=== PATIENT | female | born 1935 | race African-American/Black ===

== ENCOUNTER 2017-07-17 05:56 | Inpatient (IN) ==
[2017-07-17] MEDS ORDERED: SODIUM CHLORIDE 0.9% 1,000 ML IV STA (06:24)
[2017-07-17 06:32] LABS: Basophils % 0.5 % (0.0-0.8); Eosinophils # 0.1 10*3/uL (0.0-0.87); Eosinophils % 1.5 % (0.00-10.9); Hematocrit 38.2 VOL% (35.7-47.0); Hemoglobin 12.6 GM/DL (12.0-16.0); Immature Granulocytes % 0.5 %; Immature Granulocytes Absolute 0.03 #; Lymphocytes % 15.9 % (21.3-54.2); Mean Corpuscular Hemoglobin 27 PG (27-34); Mean Corpuscular Volume 82.3 FL (87-102); Mean Platelet Volume 10.5 FL (9.6-12.0); Monocytes # 0.4 10*3/uL (0.11-0.8); Monocytes % 5.9 % (1.7-12.7); Neutrophils # 4.9 10*3/uL (1.4-7.4); Neutrophils % 75.7 % (38.7-73.9); Platelet Count 269 T/CUMM (130-400); Red Blood Count 4.64 MC/CUMM (3.8-5.5); Red Cell Distribution Width 15.3 % (9.3-17.3); White Blood Count 6.5 T/CUMM (4-12)
[2017-07-17 06:34] LABS: Apearance,Urine CLOUDY (Clear); Bacteria,Urine Many /HPF (Few); Bilirubin,Urine Negative (Negative); Blood, Urine Small mg/dL (Negative); Glucose,Urine (UA) Negative (Negative); Ketones,Urine Negative (Negative); Mucus,Urine Moderate /LPF (Occasional); Nitrite,Urine Negative (Negative); Protein,Urine 100 MG/DL; RBC,Urine 31 /HPF (0-4); Urine Color Amber (Yellow); Urine Specific Gravity 1.021 (1.001-1.035); WBC,Urine 1596 /HPF (0-6)
[2017-07-17] MEDS ORDERED: LEVOFLOXACIN INJ 500 MG in PREMIX 1 EACH IV STA (06:48)
[2017-07-17] MEDS ORDERED: LEVOFLOXACIN INJ 100 ML IV ONE (06:54)
[2017-07-17 07:19] LABS: Albumin 2.9 G/DL (3.4-5.0); Bilirubin,Total 0.4 MG/DL (0.2-1.0); Calcium 8.3 MG/DL (8.5-10.1); Potassium 3.6 MMOL/L (3.5-5.1)
[2017-07-17] MEDS ORDERED: INFLUENZA VIRUS VACCINE 0.5 ML SYRINGE IM ONE (10:14)
[2017-07-17] MEDS ORDERED: PNEUMOCOCCAL VACCINE (13 VALENT) 0.5 ML SYRINGE IM ONE (10:15)
[2017-07-17] MEDS ORDERED: GLUCAGON 1 MG VIAL IM PRN (10:25)
[2017-07-17] MEDS ORDERED: DEXTROSE 50% 25 GM/50 ML VIAL IV PRN (10:25)
[2017-07-17] MEDS ORDERED: MAGNESIUM HYDROXIDE SUSP 30 ML UDCUP PO PRN (10:25)
[2017-07-17] MEDS ORDERED: ACETAMINOPHEN 325 MG TABLET PO PRN (10:25)
[2017-07-17] MEDS ORDERED: FUROSEMIDE 40 MG TABLET PO SCH (12:00)
[2017-07-17] MEDS: oxyCODONE/ACETAMINOPHEN 5-325 MG TABLET PO SCH ×3 (12:33→21:06)
[2017-07-17] MEDS: PANTOPRAZOLE 40 MG TABLET PO SCH (12:33)
[2017-07-17] MEDS: VALSARTAN/HCTZ 160-12.5 MG TABLET PO SCH (12:33)
[2017-07-17] MEDS: DONEPEZIL 10 MG TABLET PO SCH (12:34)
[2017-07-17] MEDS: POLYETHYLENE GLYCOL POWDER 17 GM PACK PO SCH (12:34)
[2017-07-17] MEDS: RALOXIFENE 60 MG TABLET PO SCH (12:34)
[2017-07-17] MEDS: POTASSIUM CHLORIDE 20 MEQ TABLET PO SCH (12:34)
[2017-07-17] MEDS: EZETIMIBE 10 MG TABLET PO SCH (12:34)
[2017-07-17] MEDS: INSULIN NPH/REGULAR 70/30 100 UNIT/ML SUBCUT SCH ×2 (12:34→18:47)
[2017-07-17] MEDS: INSULIN LISPRO 100 UNIT/ML SUBCUT SCH ×3 (12:34→21:00)
[2017-07-17] MEDS: GABAPENTIN 300 MG CAPSULE PO SCH ×2 (16:20→21:06)
[2017-07-17] MEDS: FUROSEMIDE 40 MG/4 ML VIAL IV SCH (16:20)
[2017-07-17] MEDS: DOCUSATE SODIUM 100 MG CAPSULE PO SCH (21:06)
[2017-07-17] MEDS: SERTRALINE 50 MG TABLET PO SCH (21:06)
[2017-07-18 06:23] LABS: Basophils % 0.3 % (0.0-0.8); Eosinophils # 0.1 10*3/uL (0.0-0.87); Hemoglobin 11.4 GM/DL (12.0-16.0); Immature Granulocytes % 0.6 %; Immature Granulocytes Absolute 0.04 #; Lymphocytes # 1.6 10*3/uL (1.4-4.0); Lymphocytes % 23.3 % (21.3-54.2); Mean Corpuscular HGB Conc 32.6 GM/DL (32-36); Mean Corpuscular Hemoglobin 27 PG (27-34); Mean Corpuscular Volume 81.4 FL (87-102); Mean Platelet Volume 11.1 FL (9.6-12.0); Monocytes # 0.5 10*3/uL (0.11-0.8); Monocytes % 6.9 % (1.7-12.7); Neutrophils # 4.7 10*3/uL (1.4-7.4); Neutrophils % 67.9 % (38.7-73.9); Platelet Count 257 T/CUMM (130-400); Red Cell Distribution Width 15.2 % (9.3-17.3)
[2017-07-18 07:05] LABS: Calcium 8.1 MG/DL (8.5-10.1); Magnesium 2.1 MG/DL (1.8-2.4); Osmolality,Calculated 285.8 MOS/KG (273-304); Potassium 3.4 MMOL/L (3.5-5.1); Risk Ratio 3.73; Thyroid Stimulating Hormone 0.702 uIU/ml (0.358-3.74)
[2017-07-18] MEDS: POTASSIUM CHLORIDE 20 MEQ TABLET PO SCH (08:56)
[2017-07-18] MEDS: EZETIMIBE 10 MG TABLET PO SCH (08:56)
[2017-07-18] MEDS: amLODIPine 10 MG TABLET PO SCH (08:56)
[2017-07-18] MEDS: DONEPEZIL 10 MG TABLET PO SCH (08:56)
[2017-07-18] MEDS: GABAPENTIN 300 MG CAPSULE PO SCH ×3 (08:56→20:48)
[2017-07-18] MEDS: RALOXIFENE 60 MG TABLET PO SCH (08:56)
[2017-07-18] MEDS: PANTOPRAZOLE 40 MG TABLET PO SCH (08:56)
[2017-07-18] MEDS: VALSARTAN/HCTZ 160-12.5 MG TABLET PO SCH (08:56)
[2017-07-18] MEDS: DOCUSATE SODIUM 100 MG CAPSULE PO SCH (08:56)
[2017-07-18] MEDS: LEVOFLOXACIN INJ 500 MG in PREMIX 1 EACH IV SCH (08:57)
[2017-07-18] MEDS: POLYETHYLENE GLYCOL POWDER 17 GM PACK PO SCH (08:57)
[2017-07-18] MEDS: INSULIN NPH/REGULAR 70/30 100 UNIT/ML SUBCUT SCH (08:57)
[2017-07-18] MEDS: FUROSEMIDE 40 MG/4 ML VIAL IV SCH (08:57)
[2017-07-18] MEDS: oxyCODONE/ACETAMINOPHEN 5-325 MG TABLET PO SCH ×4 (09:05→20:48)
[2017-07-18] MEDS: INSULIN LISPRO 100 UNIT/ML SUBCUT SCH ×3 (09:05→16:55)
[2017-07-18] MEDS ORDERED: POTASSIUM CHLORIDE 20 MEQ TABLET PO ONE (13:55)
[2017-07-18] MEDS ORDERED: MAGNESIUM CITRATE 300 ML BOTTLE PO ONE (13:57)
[2017-07-18] MEDS: ONDANSETRON 4 MG/2 ML VIAL IV PRN (17:25)
[2017-07-18] MEDS: SERTRALINE 50 MG TABLET PO SCH (20:49)
[2017-07-19 04:36] LABS: Basophils % 0.3 % (0.0-0.8); Eosinophils # 0.1 10*3/uL (0.0-0.87); Eosinophils % 1.1 % (0.00-10.9); Hematocrit 33.7 VOL% (35.7-47.0); Hemoglobin 11.1 GM/DL (12.0-16.0); Immature Granulocytes % 0.6 %; Immature Granulocytes Absolute 0.05 #; Lymphocytes # 1.7 10*3/uL (1.4-4.0); Lymphocytes % 21.4 % (21.3-54.2); Mean Corpuscular HGB Conc 32.9 GM/DL (32-36); Mean Corpuscular Hemoglobin 27 PG (27-34); Mean Corpuscular Volume 81.4 FL (87-102); Mean Platelet Volume 10.7 FL (9.6-12.0); Monocytes # 0.6 10*3/uL (0.11-0.8); Monocytes % 6.9 % (1.7-12.7); Neutrophils # 5.6 10*3/uL (1.4-7.4); Neutrophils % 69.7 % (38.7-73.9); Platelet Count 248 T/CUMM (130-400); Red Blood Count 4.14 MC/CUMM (3.8-5.5); Red Cell Distribution Width 14.8 % (9.3-17.3)
[2017-07-19 05:06] LABS: Calcium 8.1 MG/DL (8.5-10.1); Potassium 3.5 MMOL/L (3.5-5.1)
[2017-07-19] MEDS: DOCUSATE SODIUM 100 MG CAPSULE PO SCH ×3 (05:30→20:38)
[2017-07-19] MEDS: INSULIN NPH/REGULAR 70/30 100 UNIT/ML SUBCUT SCH ×3 (05:30→20:36)
[2017-07-19] MEDS: INSULIN LISPRO 100 UNIT/ML SUBCUT SCH ×5 (05:30→20:36)
[2017-07-19] MEDS: POTASSIUM CHLORIDE 20 MEQ TABLET PO SCH (09:50)
[2017-07-19] MEDS: RALOXIFENE 60 MG TABLET PO SCH (09:50)
[2017-07-19] MEDS: PANTOPRAZOLE 40 MG TABLET PO SCH (09:50)
[2017-07-19] MEDS: amLODIPine 10 MG TABLET PO SCH (09:50)
[2017-07-19] MEDS: DONEPEZIL 10 MG TABLET PO SCH (09:51)
[2017-07-19] MEDS: oxyCODONE/ACETAMINOPHEN 5-325 MG TABLET PO SCH ×4 (09:51→20:38)
[2017-07-19] MEDS: EZETIMIBE 10 MG TABLET PO SCH (09:51)
[2017-07-19] MEDS: GABAPENTIN 300 MG CAPSULE PO SCH ×3 (09:51→20:38)
[2017-07-19] MEDS: VALSARTAN/HCTZ 160-12.5 MG TABLET PO SCH (09:51)
[2017-07-19] MEDS: POLYETHYLENE GLYCOL POWDER 17 GM PACK PO SCH (09:52)
[2017-07-19] MEDS: LEVOFLOXACIN INJ 500 MG in PREMIX 1 EACH IV SCH (09:52)
[2017-07-19] MEDS: BISACODYL 5 MG TABLET PO SCH (15:51)
[2017-07-19] MEDS: SERTRALINE 50 MG TABLET PO SCH (20:38)
[2017-07-20] MEDS: oxyCODONE/ACETAMINOPHEN 5-325 MG TABLET PO SCH ×4 (08:50→20:24)
[2017-07-20] MEDS: BISACODYL 5 MG TABLET PO SCH (08:50)
[2017-07-20] MEDS: RALOXIFENE 60 MG TABLET PO SCH (08:50)
[2017-07-20] MEDS: DONEPEZIL 10 MG TABLET PO SCH (08:50)
[2017-07-20] MEDS: DOCUSATE SODIUM 100 MG CAPSULE PO SCH ×2 (08:50→20:24)
[2017-07-20] MEDS: POTASSIUM CHLORIDE 20 MEQ TABLET PO SCH (08:50)
[2017-07-20] MEDS: PANTOPRAZOLE 40 MG TABLET PO SCH (08:50)
[2017-07-20] MEDS: VALSARTAN/HCTZ 160-12.5 MG TABLET PO SCH (08:50)
[2017-07-20] MEDS: amLODIPine 10 MG TABLET PO SCH (08:50)
[2017-07-20] MEDS: EZETIMIBE 10 MG TABLET PO SCH (08:50)
[2017-07-20] MEDS: LEVOFLOXACIN INJ 500 MG in PREMIX 1 EACH IV SCH (08:51)
[2017-07-20] MEDS: GABAPENTIN 300 MG CAPSULE PO SCH ×3 (08:51→20:24)
[2017-07-20] MEDS: POLYETHYLENE GLYCOL POWDER 17 GM PACK PO SCH (08:51)
[2017-07-20] MEDS: INSULIN LISPRO 100 UNIT/ML SUBCUT SCH ×4 (08:52→23:12)
[2017-07-20] MEDS: INSULIN NPH/REGULAR 70/30 100 UNIT/ML SUBCUT SCH ×3 (08:52→19:55)
[2017-07-20] MEDS ORDERED: MELATONIN 3 MG TABLET PO PRN (19:45)
[2017-07-20] MEDS: SERTRALINE 50 MG TABLET PO SCH (20:24)
[2017-07-21] MEDS: INSULIN LISPRO 100 UNIT/ML SUBCUT SCH ×4 (07:50→20:51)
[2017-07-21] MEDS: LEVOFLOXACIN INJ 500 MG in PREMIX 1 EACH IV SCH (09:00)
[2017-07-21] MEDS: VALSARTAN/HCTZ 160-12.5 MG TABLET PO SCH (09:00)
[2017-07-21] MEDS: POTASSIUM CHLORIDE 20 MEQ TABLET PO SCH (09:01)
[2017-07-21] MEDS: DOCUSATE SODIUM 100 MG CAPSULE PO SCH ×2 (09:01→20:51)
[2017-07-21] MEDS: BISACODYL 5 MG TABLET PO SCH (09:01)
[2017-07-21] MEDS: amLODIPine 10 MG TABLET PO SCH (09:01)
[2017-07-21] MEDS: DONEPEZIL 10 MG TABLET PO SCH (09:01)
[2017-07-21] MEDS: EZETIMIBE 10 MG TABLET PO SCH (09:01)
[2017-07-21] MEDS: RALOXIFENE 60 MG TABLET PO SCH (09:01)
[2017-07-21] MEDS: PANTOPRAZOLE 40 MG TABLET PO SCH (09:01)
[2017-07-21] MEDS: oxyCODONE/ACETAMINOPHEN 5-325 MG TABLET PO SCH ×4 (09:02→20:50)
[2017-07-21] MEDS: POLYETHYLENE GLYCOL POWDER 17 GM PACK PO SCH (09:02)
[2017-07-21] MEDS: GABAPENTIN 300 MG CAPSULE PO SCH ×3 (09:02→20:50)
[2017-07-21] MEDS: INSULIN NPH/REGULAR 70/30 100 UNIT/ML SUBCUT SCH ×2 (09:02→18:21)
[2017-07-21] MEDS: SERTRALINE 50 MG TABLET PO SCH (20:50)
[2017-07-21] MEDS: ONDANSETRON 4 MG/2 ML VIAL IV PRN (20:54)
[2017-07-21] MEDS ORDERED: ZALEPLON 5 MG CAPSULE PO SCH (21:00)
[2017-07-22 08:21] VITALS: BP 155/67
[2017-07-22] MEDS: oxyCODONE/ACETAMINOPHEN 5-325 MG TABLET PO SCH (08:36)
[2017-07-22] MEDS: EZETIMIBE 10 MG TABLET PO SCH (08:36)
[2017-07-22] MEDS: RALOXIFENE 60 MG TABLET PO SCH (08:36)
[2017-07-22] MEDS: DONEPEZIL 10 MG TABLET PO SCH (08:36)
[2017-07-22] MEDS: VALSARTAN/HCTZ 160-12.5 MG TABLET PO SCH (08:36)
[2017-07-22] MEDS: POTASSIUM CHLORIDE 20 MEQ TABLET PO SCH (08:37)
[2017-07-22] MEDS: PANTOPRAZOLE 40 MG TABLET PO SCH (08:37)
[2017-07-22] MEDS: GABAPENTIN 300 MG CAPSULE PO SCH (08:37)
[2017-07-22] MEDS: amLODIPine 10 MG TABLET PO SCH (08:37)
[2017-07-22] MEDS: BISACODYL 5 MG TABLET PO SCH (08:37)
[2017-07-22] MEDS: INSULIN NPH/REGULAR 70/30 100 UNIT/ML SUBCUT SCH (08:37)
[2017-07-22] MEDS: DOCUSATE SODIUM 100 MG CAPSULE PO SCH (08:37)
[2017-07-22] MEDS: POLYETHYLENE GLYCOL POWDER 17 GM PACK PO SCH (08:38)
[2017-07-22] MEDS: LEVOFLOXACIN INJ 500 MG in PREMIX 1 EACH IV SCH (08:41)
[2017-07-22] MEDS: INSULIN LISPRO 100 UNIT/ML SUBCUT SCH (09:08)
[2017-07-22] MEDS ORDERED: INSULIN NPH/REGULAR 70/30 100 UNIT/ML SUBCUT SCH (17:00)
== END 2017-07-22 11:57 | disposition swing bed (61) | DRG 690 ==
LOC: EDUNIT# → EDBD → N.ED 05:56 → N.EDINP 08:07 → SUATTDRO 08:07 → N.2E 09:48
PROVIDERS: ADMIT Internal Medicine; ATTEND Internal Medicine

== ENCOUNTER 2020-01-02 13:13 | Inpatient (IN) ==
[2020-01-02] MEDS ORDERED: FUROSEMIDE 100 MG/10 ML VIAL IV STA (13:43)
[2020-01-02] MEDS ORDERED: DEXTROSE 50% 25 GM/50 ML VIAL IV STA (14:10)
[2020-01-02] MEDS ORDERED: DEXTROSE 50% 25 GM/50 ML SYRINGE IV ONE (14:10)
[2020-01-02 14:31] LABS: Basophils % 0.4 % (0.0-0.8); Eosinophils # 0.2 10*3/uL (0.0-0.87); Eosinophils % 3.2 % (0.00-10.9); Hemoglobin 6.9 GM/DL (12.0-16.0); Immature Granulocytes % 0.4 %; Immature Granulocytes Absolute 0.02 #; Lymphocytes % 19.9 % (21.3-54.2); Mean Corpuscular HGB Conc 28.8 GM/DL (32-36); Mean Corpuscular Volume 66.3 FL (87-102); Monocytes % 11.5 % (1.7-12.7); NRBC # 0.03 10*3/uL; Neutrophils % 64.6 % (38.7-73.9); Platelet Count 254 T/CUMM (130-400); Red Blood Count 3.62 MC/CUMM (3.8-5.5); Red Cell Distribution Width 21.4 % (9.3-17.3)
[2020-01-02 14:53] LABS: Bilirubin,Total 0.7 MG/DL (0.2-1.0); Osmolality,Calculated 282.7 MOS/KG (273-304); Total Protein 7.1 G/DL (6.4-8.3)
[2020-01-02 14:56] LABS: Apearance,Urine CLEAR (Clear); Bilirubin,Urine Negative (Negative); Blood, Urine Negative (Negative); Glucose,Urine (UA) Negative (Negative); Ketones,Urine Negative (Negative); Mucus,Urine Occasional /LPF (Occasional); Nitrite,Urine Negative (Negative); Protein,Urine Negative; RBC,Urine 1 /HPF (0-4); Urine Color Straw (Yellow); Urine Specific Gravity 1.009 (1.001-1.035); Urine Urobilinogen < 2.0 EU/DL (0.2-1.0); WBC,Urine 1 /HPF (0-6)
[2020-01-02 14:56] LABS: Hypochromasia 3+; Polychromasia 1+
[2020-01-02 14:57] LABS: Microcytosis 2+; Schistocytes 2+
[2020-01-02 14:58] LABS: Anisocytosis 2+; Platelet Estimate Normal
[2020-01-02] MEDS ORDERED: hydrALAZINE 20 MG/1 ML VIAL IV STA (15:48)
[2020-01-02] MEDS ORDERED: ONDANSETRON 4 MG/2 ML VIAL IV PRN (17:41)
[2020-01-02] MEDS ORDERED: GLUCAGON 1 MG VIAL IM PRN (17:41)
[2020-01-02] MEDS ORDERED: DOCUSATE SODIUM 100 MG CAPSULE PO PRN (17:41)
[2020-01-02] MEDS ORDERED: DEXTROSE 10% 250 ML BAG IV PRN (17:41)
[2020-01-02] MEDS ORDERED: ACETAMINOPHEN 325 MG TABLET PO PRN (17:41)
[2020-01-02] MEDS ORDERED: SODIUM CHLORIDE 0.9% 1,000 ML IV PRN (17:46)
[2020-01-02] MEDS: GABAPENTIN 300 MG CAPSULE PO SCH (20:49)
[2020-01-02] MEDS: INSULIN REGULAR 100 UNIT/ML SUBCUT SCH (20:50)
[2020-01-02] MEDS: SERTRALINE 50 MG TABLET PO SCH (20:50)
[2020-01-02] MEDS: PANTOPRAZOLE 40 MG VIAL IV SCH (20:50)
[2020-01-03 05:04] LABS: Basophils % 0.7 % (0.0-0.8); Eosinophils # 0.3 10*3/uL (0.0-0.87); Eosinophils % 5.1 % (0.00-10.9); Immature Granulocytes % 0.4 %; Immature Granulocytes Absolute 0.02 #; Lymphocytes # 1.1 10*3/uL (1.4-4.0); Mean Corpuscular Volume 68.5 FL (87-102); Mean Platelet Volume 10.1 FL (9.6-12.0); Monocytes % 11.5 % (1.7-12.7); NRBC # 0.04 10*3/uL; Neutrophils % 62.3 % (38.7-73.9); Platelet Count 239 T/CUMM (130-400); Red Blood Count 2.92 MC/CUMM (3.8-5.5); Red Cell Distribution Width 22.7 % (9.3-17.3); White Blood Count 5.5 T/CUMM (4-12)
[2020-01-03 05:06] LABS: Hemoglobin 5.8 GM/DL (12.0-16.0)
[2020-01-03] MEDS ORDERED: SODIUM CHLORIDE 0.9% 1,000 ML IV PRN (05:14)
[2020-01-03 05:42] LABS: Calcium 7.9 MG/DL (8.5-10.1); Osmolality,Calculated 283.8 MOS/KG (273-304); Thyroid Stimulating Hormone 0.842 uIU/ml (0.358-3.74)
[2020-01-03 06:19] LABS: Platelet Estimate Normal
[2020-01-03 06:20] LABS: Anisocytosis 2+; Hypochromasia 2+; Macrocytosis 1+
[2020-01-03 06:22] LABS: Giant Platelets Few; Target Cells 1+
[2020-01-03] MEDS: INSULIN REGULAR 100 UNIT/ML SUBCUT SCH ×4 (09:20→20:41)
[2020-01-03] MEDS: DOXAZOSIN 1 MG TABLET PO SCH (09:28)
[2020-01-03] MEDS: PANTOPRAZOLE 40 MG VIAL IV SCH ×2 (09:30→20:41)
[2020-01-03] MEDS: GABAPENTIN 300 MG CAPSULE PO SCH ×2 (11:28→20:40)
[2020-01-03 11:30] LABS: Hematocrit 22.4 VOL% (35.7-47.0); Hemoglobin 6.6 GM/DL (12.0-16.0)
[2020-01-03 14:06] LABS: Basophils % 0.5 % (0.0-0.8); Eosinophils # 0.2 10*3/uL (0.0-0.87); Eosinophils % 3.2 % (0.00-10.9); Hematocrit 22.4 VOL% (35.7-47.0); Hemoglobin 6.6 GM/DL (12.0-16.0); Immature Granulocytes % 0.3 %; Immature Granulocytes Absolute 0.02 #; Lymphocytes # 1.2 10*3/uL (1.4-4.0); Lymphocytes % 19.8 % (21.3-54.2); Mean Corpuscular HGB Conc 29.5 GM/DL (32-36); Mean Corpuscular Volume 70.7 FL (87-102); Mean Platelet Volume 10.8 FL (9.6-12.0); Monocytes % 9.4 % (1.7-12.7); NRBC # 0.03 10*3/uL; Neutrophils % 66.8 % (38.7-73.9); Platelet Count 236 T/CUMM (130-400); Red Blood Count 3.17 MC/CUMM (3.8-5.5); Red Cell Distribution Width 23.6 % (9.3-17.3); White Blood Count 6.2 T/CUMM (4-12)
[2020-01-03 14:31] LABS: Hypochromasia 2+; Microcytosis 1+
[2020-01-03 14:32] LABS: Anisocytosis Slight; Platelet Estimate Adequate; Polychromasia Few
[2020-01-03] MEDS: SERTRALINE 50 MG TABLET PO SCH (20:39)
[2020-01-03 23:06] LABS: Hematocrit 27.3 VOL% (35.7-47.0); Hemoglobin 8.3 GM/DL (12.0-16.0)
[2020-01-04 06:27] LABS: Basophils % 0.4 % (0.0-0.8); Eosinophils # 0.3 10*3/uL (0.0-0.87); Eosinophils % 3.9 % (0.00-10.9); Hematocrit 26.7 VOL% (35.7-47.0); Hemoglobin 8.2 GM/DL (12.0-16.0); Immature Granulocytes % 0.3 %; Immature Granulocytes Absolute 0.02 #; Lymphocytes % 14.4 % (21.3-54.2); Mean Corpuscular HGB Conc 30.7 GM/DL (32-36); Monocytes % 8.1 % (1.7-12.7); Neutrophils % 72.9 % (38.7-73.9); Platelet Count 218 T/CUMM (130-400); Red Blood Count 3.66 MC/CUMM (3.8-5.5); Red Cell Distribution Width 25.2 % (9.3-17.3); White Blood Count 6.9 T/CUMM (4-12)
[2020-01-04 06:28] LABS: NRBC # 0.02 10*3/uL
[2020-01-04 06:31] LABS: INR 1.1; PT Patient Result 11.9 SECS (9.8-11.9)
[2020-01-04 06:48] LABS: Hypochromasia 2+; Microcytosis 1+; Target Cells Few
[2020-01-04 06:49] LABS: Anisocytosis 1+; Calcium 7.6 MG/DL (8.5-10.1); Ovalocytes Few; Platelet Estimate Normal; Polychromasia Slight; Spherocytes Slight
[2020-01-04] MEDS: INSULIN REGULAR 100 UNIT/ML SUBCUT SCH ×3 (07:46→17:52)
[2020-01-04] MEDS: DOXAZOSIN 1 MG TABLET PO SCH ×2 (07:53→08:12)
[2020-01-04] MEDS: GABAPENTIN 300 MG CAPSULE PO SCH (13:27)
[2020-01-04] MEDS: PANTOPRAZOLE 40 MG VIAL IV SCH (13:29)
[2020-01-04] MEDS: LACTATED RINGERS 1,000 ML IV SCH (13:29)
[2020-01-05] MEDS: PANTOPRAZOLE 40 MG VIAL IV SCH ×2 (00:08→09:42)
[2020-01-05] MEDS: SERTRALINE 50 MG TABLET PO SCH (00:08)
[2020-01-05] MEDS: GABAPENTIN 300 MG CAPSULE PO SCH ×2 (00:08→12:14)
[2020-01-05] MEDS: INSULIN REGULAR 100 UNIT/ML SUBCUT SCH ×4 (02:42→15:35)
[2020-01-05 06:32] LABS: Basophils % 0.3 % (0.0-0.8); Eosinophils # 0.4 10*3/uL (0.0-0.87); Hematocrit 26.4 VOL% (35.7-47.0); Hemoglobin 8.1 GM/DL (12.0-16.0); Immature Granulocytes % 0.3 %; Immature Granulocytes Absolute 0.02 #; Lymphocytes # 0.9 10*3/uL (1.4-4.0); Lymphocytes % 12.3 % (21.3-54.2); Mean Corpuscular HGB Conc 30.7 GM/DL (32-36); Mean Corpuscular Volume 73.7 FL (87-102); Monocytes % 7.6 % (1.7-12.7); Neutrophils % 74.5 % (38.7-73.9); Platelet Count 215 T/CUMM (130-400); Red Blood Count 3.58 MC/CUMM (3.8-5.5); Red Cell Distribution Width 25.8 % (9.3-17.3); White Blood Count 7.2 T/CUMM (4-12)
[2020-01-05 06:47] LABS: Calcium 7.5 MG/DL (8.5-10.1); Osmolality,Calculated 282.1 MOS/KG (273-304)
[2020-01-05 06:50] LABS: Hypochromasia 2+; Platelet Estimate Adequate
[2020-01-05 06:51] LABS: Microcytosis Slight
[2020-01-05] MEDS ORDERED: FLUCONAZOLE 100 MG TABLET PO SCH (09:00)
[2020-01-05] MEDS ORDERED: LIDOCAINE 2% 5 ML VIAL ONE (09:00)
[2020-01-05] MEDS ORDERED: propofoL 200 MG/20 ML VIAL IV ONE (09:00)
[2020-01-05] MEDS: DOXAZOSIN 1 MG TABLET PO SCH (09:32)
[2020-01-05] MEDS: LACTATED RINGERS 1,000 ML IV SCH (14:31)
[2020-01-05 16:21] VITALS: BP 86/58
== END 2020-01-05 15:45 | disposition home or self-care (01) | DRG 378 ==
LOC: EDUNIT# → EDBD → N.ED 13:13 → N.EDINP 17:41 → N.3E 19:06
PROVIDERS: ADMIT Internal Medicine; ATTEND Internal Medicine

== ENCOUNTER 2020-11-21 23:26 | Inpatient (IN) ==
[2020-11-21] MEDS ORDERED: PANTOPRAZOLE 40 MG VIAL IV STA (23:54)
[2020-11-22 00:13] LABS: Basophils % 0.4 % (0.0-0.8); Eosinophils % 0.5 % (0.00-10.9); Hematocrit 28.3 VOL% (35.7-47.0); Hemoglobin 8.6 GM/DL (12.0-16.0); Immature Granulocytes % 0.2 %; Immature Granulocytes Absolute 0.02 #; Lymphocytes # 1.1 10*3/uL (1.4-4.0); Lymphocytes % 13.9 % (21.3-54.2); Mean Corpuscular HGB Conc 30.4 GM/DL (32-36); Mean Corpuscular Volume 71.5 FL (87-102); Mean Platelet Volume 9.9 FL (9.6-12.0); Monocytes % 6.8 % (1.7-12.7); Neutrophils % 78.2 % (38.7-73.9); Platelet Count 293 T/CUMM (130-400); Red Blood Count 3.96 MC/CUMM (3.8-5.5); Red Cell Distribution Width 20.3 % (9.3-17.3); White Blood Count 8.2 T/CUMM (4-12)
[2020-11-22 00:26] LABS: INR 1.1; PT Patient Result 11.4 SECS (9.8-11.9); Partial Thromboplastin Time 25.6 SECS (23.9-33.8)
[2020-11-22 00:41] LABS: Alanine Aminotransferase 11 U/L (13-56); Alkaline Phosphatase 86 U/L (45-117); Aspartate Amino Transferase 16 U/L (0-37); Bilirubin,Total < 0.39 MG/DL (0.2-1.0); Blood Urea Nitrogen 14 MG/DL (7-18); Calcium 8.4 MG/DL (8.5-10.1); Carbon Dioxide 31 MMOL/L (21-32); Estimated Glom Filtration Rate 99 ML/MIN; Glucose 122 MG/DL (74-106); Osmolality,Calculated 282.3 MOS/KG (273-304); Potassium 3.1 MMOL/L (3.5-5.1); Sodium 141 MMOL/L (136-145); Total Protein 7.9 G/DL (6.4-8.3)
[2020-11-22] MEDS ORDERED: diphenhydrAMINE CAP 25 MG CAPSULE PO PRN (02:07)
[2020-11-22] MEDS ORDERED: hydrALAZINE 20 MG/1 ML VIAL IV PRN (02:07)
[2020-11-22] MEDS ORDERED: NICOTINE 21 MG/24 HR PATCH TRANSDERM PRN (02:07)
[2020-11-22] MEDS ORDERED: ACETAMINOPHEN 325 MG TABLET PO PRN (02:07)
[2020-11-22] MEDS ORDERED: GLUCAGON 1 MG VIAL IM PRN (02:07)
[2020-11-22] MEDS ORDERED: DEXTROSE 50% 25 GM/50 ML VIAL IV PRN (02:07)
[2020-11-22] MEDS: POTASSIUM CHLORIDE RIDER 10 MEQ in PREMIX 1 EACH IV PRN ×3 (04:22→06:43)
[2020-11-22] MEDS: ONDANSETRON 4 MG/2 ML VIAL IV PRN (04:26)
[2020-11-22] MEDS: MORPHINE 4 MG/1 ML VIAL IV PRN ×2 (04:28→10:17)
[2020-11-22] MEDS: INSULIN REGULAR 100 UNIT/ML SUBCUT SCH ×4 (08:15→21:08)
[2020-11-22] MEDS: PANTOPRAZOLE 40 MG VIAL IV SCH ×2 (09:40→20:58)
[2020-11-22 10:56] LABS: Basophils % 0.4 % (0.0-0.8); Eosinophils # 0.1 10*3/uL (0.0-0.87); Hemoglobin 7.9 GM/DL (12.0-16.0); Immature Granulocytes % 0.1 %; Immature Granulocytes Absolute 0.01 #; Lymphocytes # 0.9 10*3/uL (1.4-4.0); Lymphocytes % 13.4 % (21.3-54.2); Mean Corpuscular HGB Conc 30.4 GM/DL (32-36); Mean Corpuscular Volume 71.8 FL (87-102); Mean Platelet Volume 9.6 FL (9.6-12.0); Monocytes % 9.1 % (1.7-12.7); Platelet Count 266 T/CUMM (130-400); Red Blood Count 3.62 MC/CUMM (3.8-5.5); Red Cell Distribution Width 20.1 % (9.3-17.3); White Blood Count 6.7 T/CUMM (4-12)
[2020-11-22] MEDS ORDERED: cefTRIAXone 1,000 MG in SYRINGE 1 EACH IV SCH (11:00)
[2020-11-22] MEDS: metroNIDAZOLE INJ 500 MG in PREMIX 1 EACH IV SCH ×3 (11:30→23:07)
[2020-11-22] MEDS: CIPROFLOXACIN INJ 400 MG in PREMIX 1 EACH IV SCH (12:50)
[2020-11-22] MEDS ORDERED: SKIN HEALING OINT (AQUAPHOR) 50 GM TUBE TOP PRN (15:24)
[2020-11-22 17:00] LABS: Hematocrit 27.5 VOL% (35.7-47.0); Hemoglobin 8.2 GM/DL (12.0-16.0)
[2020-11-23] MEDS: CIPROFLOXACIN INJ 400 MG in PREMIX 1 EACH IV SCH ×2 (00:13→13:44)
[2020-11-23 02:00] LABS: Hematocrit 27.1 VOL% (35.7-47.0); Hemoglobin 8.2 GM/DL (12.0-16.0)
[2020-11-23] MEDS: metroNIDAZOLE INJ 500 MG in PREMIX 1 EACH IV SCH ×3 (04:51→20:42)
[2020-11-23 05:32] LABS: Basophils % 0.5 % (0.0-0.8); Eosinophils # 0.1 10*3/uL (0.0-0.87); Eosinophils % 1.2 % (0.00-10.9); Hematocrit 25.8 VOL% (35.7-47.0); Immature Granulocytes % 0.5 %; Immature Granulocytes Absolute 0.03 #; Lymphocytes # 0.7 10*3/uL (1.4-4.0); Mean Corpuscular Volume 70.7 FL (87-102); Mean Platelet Volume 10.1 FL (9.6-12.0); Monocytes % 6.6 % (1.7-12.7); Neutrophils % 80.2 % (38.7-73.9); Platelet Count 259 T/CUMM (130-400); Red Blood Count 3.65 MC/CUMM (3.8-5.5); White Blood Count 6.6 T/CUMM (4-12)
[2020-11-23] MEDS: MORPHINE 4 MG/1 ML VIAL IV PRN ×2 (06:00→10:30)
[2020-11-23 06:02] LABS: Calcium 7.9 MG/DL (8.5-10.1); Osmolality,Calculated 280.3 MOS/KG (273-304)
[2020-11-23] MEDS: PANTOPRAZOLE 40 MG VIAL IV SCH ×2 (08:52→20:40)
[2020-11-23] MEDS: POTASSIUM CHLORIDE RIDER 10 MEQ in PREMIX 1 EACH IV PRN ×5 (08:53→20:43)
[2020-11-23] MEDS: INSULIN REGULAR 100 UNIT/ML SUBCUT SCH ×4 (09:00→20:41)
[2020-11-23 09:04] LABS: Hematocrit 29.4 VOL% (35.7-47.0); Hemoglobin 8.8 GM/DL (12.0-16.0)
[2020-11-23] MEDS: ONDANSETRON 4 MG/2 ML VIAL IV PRN (10:30)
[2020-11-23] MEDS: DOXAZOSIN 1 MG TABLET PO SCH (13:44)
[2020-11-23] MEDS: amLODIPine 10 MG TABLET PO SCH (13:45)
[2020-11-23] MEDS: GABAPENTIN 300 MG CAPSULE PO SCH ×2 (13:45→20:42)
[2020-11-23] MEDS: SERTRALINE 50 MG TABLET PO SCH (20:42)
[2020-11-24] MEDS: CIPROFLOXACIN INJ 400 MG in PREMIX 1 EACH IV SCH (00:09)
[2020-11-24] MEDS ORDERED: HALOPERIDOL 5 MG/ML AMP IM ONE (04:25)
[2020-11-24] MEDS ORDERED: LORazepam 2 MG/1 ML VIAL IV ONE (04:39)
[2020-11-24 04:57] LABS: Basophils % 0.4 % (0.0-0.8); Eosinophils # 0.2 10*3/uL (0.0-0.87); Hematocrit 25.3 VOL% (35.7-47.0); Hemoglobin 7.7 GM/DL (12.0-16.0); Immature Granulocytes % 0.3 %; Immature Granulocytes Absolute 0.02 #; Lymphocytes # 1.1 10*3/uL (1.4-4.0); Lymphocytes % 16.3 % (21.3-54.2); Mean Corpuscular HGB Conc 30.4 GM/DL (32-36); Mean Corpuscular Volume 70.5 FL (87-102); Mean Platelet Volume 10.3 FL (9.6-12.0); Monocytes % 9.3 % (1.7-12.7); Neutrophils % 70.7 % (38.7-73.9); Platelet Count 242 T/CUMM (130-400); Red Blood Count 3.59 MC/CUMM (3.8-5.5); Red Cell Distribution Width 19.6 % (9.3-17.3)
[2020-11-24 05:29] LABS: Calcium 7.7 MG/DL (8.5-10.1); Osmolality,Calculated 279.3 MOS/KG (273-304); Potassium 3.2 MMOL/L (3.5-5.1)
[2020-11-24] MEDS: metroNIDAZOLE INJ 500 MG in PREMIX 1 EACH IV SCH (06:00)
[2020-11-24] MEDS: PANTOPRAZOLE 40 MG VIAL IV SCH ×2 (08:53→21:23)
[2020-11-24] MEDS: amLODIPine 10 MG TABLET PO SCH (08:53)
[2020-11-24] MEDS: INSULIN REGULAR 100 UNIT/ML SUBCUT SCH ×4 (08:54→21:20)
[2020-11-24] MEDS: DOXAZOSIN 1 MG TABLET PO SCH (08:54)
[2020-11-24] MEDS ORDERED: OLANZapine 2.5 MG TABLET PO PRN (10:42)
[2020-11-24] MEDS ORDERED: POTASSIUM CHLORIDE INJ 50 MEQ in SODIUM CHLORIDE 0.9% 500 ML IV ONE (11:00)
[2020-11-24 12:15] LABS: Hematocrit 27.5 VOL% (35.7-47.0); Hemoglobin 8.3 GM/DL (12.0-16.0)
[2020-11-24] MEDS: GABAPENTIN 300 MG CAPSULE PO SCH ×2 (12:57→21:20)
[2020-11-24] MEDS: metroNIDAZOLE 500 MG TABLET PO SCH ×2 (17:36→21:20)
[2020-11-24 20:39] LABS: Hematocrit 26.2 VOL% (35.7-47.0); Hemoglobin 7.9 GM/DL (12.0-16.0)
[2020-11-24] MEDS: SERTRALINE 50 MG TABLET PO SCH (21:20)
[2020-11-24] MEDS: CIPROFLOXACIN 500 MG TABLET PO SCH (21:20)
[2020-11-25 05:26] LABS: Basophils % 0.6 % (0.0-0.8); Eosinophils # 0.4 10*3/uL (0.0-0.87); Eosinophils % 7.4 % (0.00-10.9); Hematocrit 26.1 VOL% (35.7-47.0); Hemoglobin 7.9 GM/DL (12.0-16.0); Immature Granulocytes % 0.4 %; Immature Granulocytes Absolute 0.02 #; Lymphocytes # 1.2 10*3/uL (1.4-4.0); Lymphocytes % 22.5 % (21.3-54.2); Mean Corpuscular HGB Conc 30.3 GM/DL (32-36); Mean Corpuscular Volume 72.1 FL (87-102); Mean Platelet Volume 10.1 FL (9.6-12.0); Monocytes % 10.6 % (1.7-12.7); Neutrophils % 58.5 % (38.7-73.9); Platelet Count 247 T/CUMM (130-400); Red Blood Count 3.62 MC/CUMM (3.8-5.5); Red Cell Distribution Width 19.5 % (9.3-17.3); White Blood Count 5.4 T/CUMM (4-12)
[2020-11-25 05:28] LABS: Hematocrit 25.3 VOL% (35.7-47.0); Hemoglobin 7.8 GM/DL (12.0-16.0)
[2020-11-25 05:46] LABS: Calcium 7.7 MG/DL (8.5-10.1); Osmolality,Calculated 284.7 MOS/KG (273-304); Potassium 3.2 MMOL/L (3.5-5.1)
[2020-11-25] MEDS ORDERED: POTASSIUM CHLORIDE 20 MEQ TABLET PO ONE (07:55)
[2020-11-25] MEDS: INSULIN REGULAR 100 UNIT/ML SUBCUT SCH ×2 (08:42→12:19)
[2020-11-25] MEDS: metroNIDAZOLE 500 MG TABLET PO SCH ×2 (08:43→14:35)
[2020-11-25] MEDS: DOXAZOSIN 1 MG TABLET PO SCH (08:43)
[2020-11-25] MEDS: PANTOPRAZOLE 40 MG VIAL IV SCH (08:44)
[2020-11-25] MEDS: amLODIPine 10 MG TABLET PO SCH (08:44)
[2020-11-25] MEDS: CIPROFLOXACIN 500 MG TABLET PO SCH (08:44)
[2020-11-25] MEDS ORDERED: SODIUM CHLORIDE 0.9% 1,000 ML IV PRN (09:03)
[2020-11-25] MEDS: GABAPENTIN 300 MG CAPSULE PO SCH (11:38)
[2020-11-25 12:22] VITALS: BP 172/43
[2020-11-25 14:15] LABS: Calcium 7.8 MG/DL (8.5-10.1); Osmolality,Calculated 285.3 MOS/KG (273-304); Potassium 3.8 MMOL/L (3.5-5.1)
== END 2020-11-25 16:01 | disposition home health service (06) | DRG 378 ==
LOC: EDUNIT# → N.ED 23:26 → N.EDINP 23:26 → N.5E 11-22 13:12 → SUATTDRO 11-23 13:51
PROVIDERS: ADMIT Emergency Medicine; ATTEND Internal Medicine

== ENCOUNTER 2021-03-29 13:55 | Observation (INO) ==
[2021-03-29 15:04] LABS: Basophils % 0.5 % (0.0-0.8); Eosinophils # 0.1 10*3/uL (0.0-0.87); Eosinophils % 0.6 % (0.00-10.9); Hemoglobin 10.5 GM/DL (12.0-16.0); Immature Granulocytes % 0.4 %; Immature Granulocytes Absolute 0.03 #; Lymphocytes # 0.9 10*3/uL (1.4-4.0); Lymphocytes % 10.4 % (21.3-54.2); Mean Corpuscular HGB Conc 30.9 GM/DL (32-36); Mean Corpuscular Volume 75.6 FL (87-102); Mean Platelet Volume 9.7 FL (9.6-12.0); Monocytes % 8.3 % (1.7-12.7); Neutrophils % 79.8 % (38.7-73.9); Platelet Count 271 T/CUMM (130-400); Red Cell Distribution Width 20.6 % (9.3-17.3); White Blood Count 8.2 T/CUMM (4-12)
[2021-03-29 15:31] LABS: Bilirubin,Total 0.5 MG/DL (0.20-1.00); Calcium 8.4 MG/DL (8.5-10.1); Osmolality,Calculated 288.1 MOS/KG (273-304); Potassium 3.2 MMOL/L (3.5-5.1); Total Protein 7.2 G/DL (6.4-8.2)
[2021-03-29 15:45] LABS: Bilirubin,Urine Negative (Negative); Blood, Urine Negative (Negative); Glucose,Urine (UA) 50 mg/dL (Negative); Hyaline Casts,Urine 13 /LPF (0-3); Ketones,Urine Negative (Negative); Mucus,Urine Occasional /LPF (Occasional); Nitrite,Urine Negative (Negative); Protein,Urine 100 MG/DL; RBC,Urine 1 /HPF (0-4); Squamous Epithelial Cell,Urine Occasional /HPF (0-10); Urine Appearance Slightly Hazy (Clear); Urine Color Yellow (Yellow); Urine Specific Gravity 1.015 (1.001-1.035)
[2021-03-29] MEDS ORDERED: DEXTROSE 50% 25 GM/50 ML VIAL IV PRN ×2 (16:36)
[2021-03-29] MEDS ORDERED: ONDANSETRON 4 MG/2 ML VIAL IV PRN (16:36)
[2021-03-29] MEDS ORDERED: GLUCAGON 1 MG VIAL IM PRN ×2 (16:36)
[2021-03-29] MEDS ORDERED: POTASSIUM CHLORIDE 20 MEQ TABLET PO PRN ×2 (16:36)
[2021-03-29] MEDS ORDERED: POTASSIUM CHLORIDE 20 MEQ/15 ML UDCUP PO ONE (16:41)
[2021-03-29] MEDS: LACTATED RINGERS 1,000 ML IV SCH (18:07)
[2021-03-29] MEDS: amLODIPine 10 MG TABLET PO SCH (18:08)
[2021-03-29] MEDS ORDERED: ENOXAPARIN 40 MG/0.4 ML SYRINGE SUBCUT SCH (21:00)
[2021-03-29] MEDS: INSULIN REGULAR 100 UNIT/ML SUBCUT SCH (21:05)
[2021-03-29] MEDS: PANTOPRAZOLE 40 MG TABLET PO SCH (21:58)
[2021-03-29] MEDS: METOPROLOL TARTRATE 25 MG TABLET PO SCH (21:58)
[2021-03-30] MEDS: LACTATED RINGERS 1,000 ML IV SCH (05:44)
[2021-03-30 07:02] LABS: Basophils # 0.1 10*3/uL (0.0-0.2); Basophils % 0.6 % (0.0-0.8); Eosinophils # 0.2 10*3/uL (0.0-0.87); Eosinophils % 1.7 % (0.00-10.9); Hematocrit 32.9 VOL% (35.7-47.0); Hemoglobin 10.2 GM/DL (12.0-16.0); Immature Granulocytes % 0.2 %; Immature Granulocytes Absolute 0.02 #; Lymphocytes # 1.2 10*3/uL (1.4-4.0); Lymphocytes % 14.3 % (21.3-54.2); Mean Corpuscular Volume 74.9 FL (87-102); Mean Platelet Volume 10.7 FL (9.6-12.0); Monocytes % 8.9 % (1.7-12.7); Neutrophils % 74.3 % (38.7-73.9); Platelet Count 293 T/CUMM (130-400); Red Blood Count 4.39 MC/CUMM (3.8-5.5); Red Cell Distribution Width 20.5 % (9.3-17.3); White Blood Count 8.7 T/CUMM (4-12)
[2021-03-30 07:10] LABS: Albumin 2.6 G/DL (3.4-5.0); Bilirubin,Total 0.4 MG/DL (0.20-1.00); Osmolality,Calculated 284.8 MOS/KG (273-304); Potassium 3.5 MMOL/L (3.5-5.1); Risk Ratio 4.29; Total Protein 6.2 G/DL (6.4-8.2); VLDL Cholesterol 19.2 MG/DL
[2021-03-30 07:20] LABS: Hypochromasia 1+; Microcytosis 1+
[2021-03-30 07:22] LABS: Platelet Estimate Adequate
[2021-03-30] MEDS ORDERED: MAGNESIUM SULF RIDER 2 GM/50 ML PREMIX IV PRN (07:58)
[2021-03-30] MEDS ORDERED: INSULIN NPH/REGULAR 70/30 100 UNIT/ML SUBCUT SCH (08:00)
[2021-03-30] MEDS: INSULIN REGULAR 100 UNIT/ML SUBCUT SCH ×3 (08:38→16:21)
[2021-03-30] MEDS ORDERED: SERTRALINE 100 MG TABLET PO SCH (09:00)
[2021-03-30] MEDS: amLODIPine 10 MG TABLET PO SCH (09:29)
[2021-03-30] MEDS: METOPROLOL TARTRATE 25 MG TABLET PO SCH (09:29)
[2021-03-30] MEDS: PANTOPRAZOLE 40 MG TABLET PO SCH (09:29)
[2021-03-30 16:54] VITALS: BP 181/71
== END 2021-03-30 18:22 | disposition home health service (06) ==
LOC: EDUNIT# → N.EDINP 13:55 → N.ED 13:55 → N.EDINP 19:37 → N.TELES 20:12
PROVIDERS: ADMIT Internal Medicine; ATTEND Internal Medicine